=== PATIENT | male | born 1955 | race Caucasian/White ===

== ENCOUNTER 2024-04-20 09:19 | Emergency (ER) | payer OTHER, SELFPAY ==
[2024-04-20 09:22] VITALS: BP 172/98
--- NOTE | 2024-04-20 09:52 | ED.GENMED ---
History of Present Illness
General
Chief Complaint: Flank Pain
Source: patient
Exam Limitations: none
Time Seen by Provider: 04/20/24 09:28
Nursing documentation reviewed up to this point in time: agreed with
History of Present Illness
History of Present Illness:
69-year-old male presents to the ER complaining of left back/flank pain for the past 4 days. He reports pain is intermittent and feels similar to his previous kidney stone passed. He reports he passed a kidney stone this past. He has nausea with
this but has not vomited. He denies any injury however the pain seems to worsen with movement but he does have it at rest.
Past History
Past History
ED Past Medical History: HTN and Other (Agree with documented past medical history.)
ED Past Surgical History: Orthopedic and Other (Agree with documented past surgical history.)
Social History
Tobacco: Non-smoker
Alcohol: Occasional
Drug: None
Personal:
Living: with family
Employment: Employed
Review of Systems
Review of Systems
Allergies reviewed?: Yes
All Other Systems: ROS reviewed and negative except as documented in HPI and ROS
Constitutional: Reports no symptoms; Denies fever
Respiratory: Reports no symptoms
Cardiac: Reports no symptoms
ABD/GI: Reports no symptoms; Denies abdominal pain, nausea or vomiting
: Reports flank pain; Denies dysuria, incontinence, urgency or discharge
Skin: Reports no symptoms
Neurological: Reports no symptoms
Psychiatric: Reports no symptoms
Phy Exam
General Physical Exam
General Presentation: no apparent distress
General age: appears stated age
General Skin: warm and dry
General Habitus: normal
General Mental: alert
General Hydration: appears well hydrated
Cardiovascular Exam
Cardiovascular Exam: regular rate/rhythm, no murmur and normal peripheral pulses
Pulmonary Exam
Pulmonary Exam: lungs clear and no respiratory distress
Gastrointestinal Exam
Gastrointestinal Exam: non tender and soft
Neurological Exam
Neurological Exam: alert and oriented x3
Musculoskeletal Exam
Musculoskeletal Exam: other (Full range of motion to extremities without discomfort questional minimal left paralumbar tenderness normal inspection to back)
Skin Exam
Skin Exam: normal color and warm/dry
Psychiatric Exam
Psychiatric Exam: normal mood/affect
Course
Orders/Labs/Results
Orders:
Orders
04/20/24 09:57
CT Abd/pel Without Iv Or Oral Urgent
Comment:
Reason For Exam: l flank pain
IV Insert/Care/Rem.- Treatment PRN
0.9% Sodium Chloride 1000 ml [Nss] 1,000 ml IV BOLUS
Ketorolac [Toradol] 15 mg IV NOW STA
04/20/24 10:11
Complete Blood Count/With Diff Urgent
Comprehensive Metabolic Panel Urgent
Urinalysis Reflex To Culture Urgent
Date Specimen was Collected: 04/20/24
Time Specimen was Collected: 10:07
Abnormal Lab Results
04/20/24
10:11
MPV 11.2 H fL
(7.4-10.4)
Abs Immat Gran (auto) 0.1 H 10^3/uL
(0-0.05)
Immature Gran % 0.6 H %
(0-0.5)
Neutrophils % 76.0 H %
(42.2-75.2)
Lymphocytes % 15.9 L %
(20.5-51.1)
BUN 22 H mg/dl
(9-20)
Glucose 195 H mg/dl
(70-99)
Urine Glucose 3+ A
(Negative)
04/20/24 10:11
04/20/24 10:11
Vital Signs
Initial and Last Documented VS:
Initial Vital Signs
Temp Pulse Resp BP Pulse Ox
98.3 F 77 16 172/98 98
04/20/24 09:22 04/20/24 09:22 04/20/24 09:22 04/20/24 09:22 04/20/24 09:22
Last Documented Vital Signs
Temp Pulse Resp BP Pulse Ox
98.3 F 77 16 172/98 96
04/20/24 09:22 04/20/24 09:22 04/20/24 09:22 04/20/24 09:22 04/20/24 10:17
MDM/Problems Addressed
MDM/Problems Addressed:
CAT scan negative for renal colic no acute abnormalities. Patient does express that the pain seems to worsen with movement to his left lower back. He is mildly tender to his left paralumbar muscle on exam. No acute distress and afebrile normal
labs. Patient was given Toradol here with slight improvement likely muscular no other acute abnormalities during workup stable for discharge home. Will have patient to alternate with ibuprofen /tylenol for muscle pain with close outpt f/u by pcp
.
*Radiology
Radiology exam reviewed: radiology read reviewed
*Pulse Oximetry
Patient hypoxic: no
*Critical Care Note
Total Time (30-74mins, 75-104mins- exclusive of procedures): Not Applicable
ED Attending Note
-
Portions of this chart may have been created with voice recognition software.� Occasional wrong word or��sound alike� substitutions may have occurred due to the inherent limitations of voice recognition software.
Discharge Plan
Departure
Patient Disposition: Home (Routine Discharge)
Date of Disposition: 04/20/24
Time of Disposition: 11:56
Patient with high blood pressure during this ER visit?: Yes
Condition: Fair
Covid-19: Not Applicable
Discharge Problem:
Low back pain
Instructions: Low back pain in adults, BLOOD PRESSURE
Prescriptions:
No Action
multivitamin [Multi-Day] 1 EACH tablet
1 ea PO DAILY
losartan 50 MG tablet
100 mg PO DAILY
cetirizine 10 MG tablet
10 mg PO DAILY
allopurinol 300 MG tablet
300 mg PO DAILY
fluticasone propionate [Flovent HFA] 1 PUFF HFA aerosol inhaler
2 puff inhalation R BID PRN (Reason: congestion)
metformin 500 MG tablet extended release 24hr
1,000 mg PO DAILY
Referrals:
Nahed Rodriguez PA [Family Provider] -
Activity Restrictions/Additional Instructions:
As discussed You may alternate between ibuprofen and Tylenol.
Symptoms are likely muscular back pain. Your CAT scan was negative. Follow-up with your family doctor in the next of days for reevaluation return if any worsening of symptoms
Interventions
Interventions:
*Risk Screen - Suicide Last Done: 04/20/24 09:22
*General Assessment Last Done: 04/20/24 09:22
*Neglect/Abuse Screening Last Done: 04/20/24 09:22
*ED COVID-19 Vaccine History Last Done: 04/20/24 10:11
TQ-Vjnslo-Nybaohwwlx Assessment Last Done: 04/20/24 10:11
ED-Male Genitourinary Assessment Last Done: 04/20/24 10:11
Discharge Date and Time
Print Language: UKRAINIAN
[2024-04-20 10:11] VITALS: BMI 39.4
[2024-04-20] MEDS: TORADOL 15 MG IV (10:13)
[2024-04-20] MEDS: NSS 1000 IV (10:13)
[2024-04-20 10:21] LABS: % Basophils 0.5 % (0-2); % Eosinophils 1.2 % (0-6); % Immature Granulocytes 0.6 % (0-0.5); % Lymphocytes 15.9 % (20.5-51.1); % Monocytes 5.8 % (1.7-9.3); Absolute Eosinophils 0.1 10^3/uL (0-0.7); Absolute Immature Granulocytes 0.1 10^3/uL (0-0.05); Absolute Lymphocytes 1.2 10^3/uL (1.2-3.4); Absolute Monocytes 0.5 10^3/uL (0.1-0.6); Absolute Neutrophils 5.9 10^3/uL (1.4-6.5); Hematocrit 45.3 % (39.0-52.0); Hemoglobin 15.7 g/dL (13.0-18.0); Mean Corp Hgb Conc. 34.7 g/dL (33.0-37.0); Mean Corpuscular Hgb 30.8 pg (27.0-31.0); Mean Platelet Volume 11.2 fL (7.4-10.4); Nucleated Red Blood Cells % 0 % (-); Platelet Count 186 10^3/uL (130-400); Red Blood Cell Count 5.09 10^6/uL (4.70-6.10); Red Cell Dist. Width 12.9 % (11.5-14.5); White Blood Cell Count 7.7 10^3/uL (4.8-10.8)
[2024-04-20 10:37] LABS: ALT (SGPT) 40 U/L (0-50); AST (SGOT) 30 U/L (17-59); Albumin 3.9 g/dl (3.5-5.0); Alkaline Phosphatase 75 U/L (38-126); Blood Urea Nitrogen 22 mg/dl (9-20); Calcium 9.2 mg/dl (8.4-10.2); Carbon Dioxide 25 mmol/L (22-30); Chloride 102 mmol/L (98-107); Estimated Creatinine Clearance 79 ml/min; Glucose 195 mg/dl (70-99); Potassium 4.4 mmol/L (3.5-5.1); Sodium 136 mmol/L (135-145); Total Bilirubin 1.3 mg/dl (0.2-1.3); Total Protein 6.6 g/dl (6.3-8.2); eGFR > 60.00
[2024-04-20 10:41] LABS: Urine Albumin Trace (Neg - Trace); Urine Bilirubin Negative (Negative); Urine Character Clear (Clear); Urine Color Yellow; Urine Glucose 3+ (Negative); Urine Ketone Negative (Negative); Urine Leukocyte Negative (Negative); Urine Nitrite Negative (Negative); Urine Occult Blood Negative (Negative); Urine Specific Gravity 1.015 (<1.030); Urine Urobilinogen Negative (Neg - 1+)
== END 2024-04-20 12:23 | disposition home or self-care (01) ==
LOC: EMR 09:19
PROVIDERS: Nurse Practitioner; EMERGENCY PHYSICIAN Student in an Organized Health Care Education/Training Program; FAMILY PHYSICIAN Physician Assistant Medical
DX: M54.50 Low back pain, unspecified (principal); I10 Essential (primary) hypertension
CPT/HCPCS: 96374; 96361; 99284; 74176; 80053; 81003; 85025